=== PATIENT | male | born 1930 | race Caucasian/White ===

== ENCOUNTER 2017-08-07 19:36 | Emergency (ER) | payer MEDICARE ==
[2017-08-07] MEDS ORDERED: Alum Hydrox/Mag Hydrox/Simeth 15 ML, Lidocaine 2% 15 ML PO ONE ×2 (20:01)
--- NOTE | 2017-08-07 20:37 | EDM.PDOC ---
ED HPI GENERAL MEDICAL PROBLEM - General Chief Complaint: ENT Problem Stated Complaint: SOMETHING STUCK IN THROAT Time Seen by Provider: 08/07/17 19:45 Source of Information: Reports: Patient, Family History Limitations: Reports: No Limitations - History of Present Illness INITIAL COMMENTS - FREE TEXT/NARRATIVE: 86-year-old male with a feeling of a foreign body in his upper throat. It started this morning after he took his medications and then was eating a hotdog that was uncooked. Since that time he has a sensation of odynophagia in the upper throat but no obstruction. No shortness of breath or cough. Onset: Sudden (Started around 10 AM this morning) Severity: Mild Worsens with: Reports: Other (Worsens with swallowing or coughing) Throat Pain Score (Numeric/FACES): 5 - Related Data Allergies Allergy/AdvReac Type Severity Reaction Status Date / Time atorvastatin calcium Allergy Rash Verified 08/07/17 20:02 [From Lipitor] Penicillins Allergy Hives Verified 08/07/17 20:02 Home Meds: Home Meds Aspirin 81 mg PO DAILY 06/03/13 [History] Finasteride 5 mg PO DAILY 06/03/13 [History] Metoprolol Tartrate 50 tab PO BID 06/03/13 [History] Ocuvite 1 tab PO DAILY 06/03/13 [History] Furosemide [Lasix] 40 mg PO DAILY 08/07/17 [History] Tamsulosin HCl 1 tab PO DAILY 08/07/17 [History] Past Medical History HEENT History: Reports: Impaired Vision, Otitis Media, Other (See Below) Other HEENT History: Excessive cerumen Cardiovascular History: Reports: Hypertension Respiratory History: Reports: None Gastrointestinal History: Reports: Other (See Below) Other Gastrointestinal History: Bladder stones Genitourinary History: Reports: Urinary Incontinence, Other (See Below) Other Genitourinary History: Kidney problems Musculoskeletal History: Reports: Fracture Other Musculoskeletal History: fractured rib secondary to fall Neurological History: Reports: CVA Psychiatric History: Reports: None Endocrine/Metabolic History: Reports: None Hematologic History: Reports: None Immunologic History: Reports: None Oncologic (Cancer) History: Reports: None Dermatologic History: Reports: None - Infectious Disease History Infectious Disease History: Reports: Chicken Pox, Measles, Mumps - Past Surgical History Head Surgeries/Procedures: Reports: None GI Surgical History: Reports: Other (See Below) Other GI Surgeries/Procedures: surgery to remove bladder stones Social & Family History - Tobacco Use Smoking Status *Q: Never Smoker Second Hand Smoke Exposure: No - Caffeine Use Caffeine Use: Reports: Coffee - Alcohol Use Days Per Week of Alcohol Use: 7 Number of Drinks Per Day: 3 Total Drinks Per Week: 21 Date of Last Drink: 08/07/17 Time of Last Drink: 18:00 - Recreational Drug Use Recreational Drug Use: No ED ROS ENT - Review of Systems Review Of Systems: See Below Constitutional: Denies: Fever Respiratory: Denies: Shortness of Breath, Cough Cardiovascular: Denies: Chest Pain GI/Abdominal: Denies: Abdominal Pain, Nausea, Vomiting Neurological: Denies: Headache ED EXAM, ENT - Physical Exam Exam: See Below Exam Limited By: No Limitations General Appearance: Alert, No Apparent Distress Mouth/Throat: Normal Inspection, Other (Tonsils are absent, no mucosal swelling or foreign body in the oropharynx) Respiratory/Chest: No Respiratory Distress, Lungs Clear Cardiovascular: Regular Rate, Rhythm GI/Abdominal: Soft, Non-Tender Neurological: Alert, Oriented Skin: Warm, Dry Course - Vital Signs Last Recorded V/S: Last Vital Signs Temp 96.3 F 08/07/17 20:12 Pulse 56 L 08/07/17 20:12 Resp 16 08/07/17 20:12 BP 163/74 H 08/07/17 20:12 Pulse Ox 95 08/07/17 20:12 - Orders/Labs/Meds Meds: Medications Discontinued Medications Generic Name Dose Route Start Last Admin Trade Name Freq PRN Reason Stop Dose Admin Al Hydroxide/Mg Hydroxide 15 0 ml 08/07/17 20:01 08/07/17 20:16 ml/ Lidocaine HCl 15 ml PO 08/07/17 20:02 30 ml ONETIME ONE Administration - Re-Assessments/Exams Free Text/Narrative Re-Assessment/Exam: 08/07/17 20:35 Patient was given a GI cocktail and it did relieve his symptoms partially. He took the cocktail without any difficulty and can drink water. He likely has an abrasion or irritation of the upper esophagus without foreign body and it should resolve over the next day or two. He is comfortable with no further evaluation at this time. Departure - Departure Time of Disposition: 20:56 Disposition: Home, Self-Care 01 Condition: Good Clinical Impression: Odynophagia - Discharge Information Instructions: Swallowed Foreign Body, Adult, [id number] Referrals: David Erickson MD [Primary Care Provider] - Forms: ED Department Discharge Care Plan Goals: Continue with current diet and activity, and recheck in 48-72 hours if not significant improvement. Return sooner at any time if worsening such as inability to swallow.
== END 2017-08-07 20:56 | disposition home or self-care (01) ==
LOC: JP.ED 19:36
DX: R13.10 Dysphagia, unspecified (principal); I10 Essential (primary) hypertension; Z88.8 Allergy status to other drugs, medicaments and biological substances; Z88.0 Allergy status to penicillin; Z79.899 Other long term (current) drug therapy; Z79.82 Long term (current) use of aspirin
CPT/HCPCS: 99283; A9270

== ENCOUNTER 2018-09-24 13:19 | Emergency (ER) | payer MEDICARE ==
--- NOTE | 2018-09-24 14:25 | EDM.PDOC ---
ED HPI GENERAL MEDICAL PROBLEM - General Chief Complaint: Lower Extremity Injury/Pain Stated Complaint: MED VIA [facility] Time Seen by Provider: 09/24/18 14:00 Source of Information: Reports: Patient, EMS, Family History Limitations: Reports: No Limitations - History of Present Illness INITIAL COMMENTS - FREE TEXT/NARRATIVE: 88-year-old male with chronic lower extremity pain especially on the left, this morning it was so bad it was limiting his ability to ambulate and radiating around to his lower back. He's also had some increased swelling of his lower extremities. He did stop his Lasix because of the persistent incontinence. Onset: Gradual Duration: Chronic Location: Reports: Lower Extremity, Left, Lower Extremity, Right Worsens with: Reports: Other (Ambulation), Movement Associated Symptoms: Reports: Weakness. Denies: Confusion, Chest Pain, Cough, Nausea/Vomiting Left Leg Pain Score (Numeric/FACES): 5 - Related Data Allergies Allergy/AdvReac Type Severity Reaction Status Date / Time atorvastatin calcium Allergy Rash Verified 09/24/18 13:37 [From Lipitor] Penicillins Allergy Hives Verified 09/24/18 13:37 Home Meds: Home Meds Aspirin 81 mg PO DAILY 06/03/13 [History] Finasteride 5 mg PO DAILY 06/03/13 [History] Metoprolol Tartrate 50 tab PO BID 06/03/13 [History] Ocuvite 1 tab PO DAILY 06/03/13 [History] Naproxen Sodium [Aleve] 220 mg PO BID PRN 09/24/18 [History] Past Medical History HEENT History: Reports: Impaired Vision, Otitis Media, Other (See Below) Other HEENT History: Excessive cerumen Cardiovascular History: Reports: Hypertension Respiratory History: Reports: None Gastrointestinal History: Reports: Other (See Below) Other Gastrointestinal History: Bladder stones Genitourinary History: Reports: Renal Disease, Urinary Incontinence, Other (See Below) Other Genitourinary History: Kidney problems Musculoskeletal History: Reports: Fracture, Other (See Below) Other Musculoskeletal History: fractured rib secondary to fall Chronic l hip and leg pain Neurological History: Reports: CVA Psychiatric History: Reports: None Endocrine/Metabolic History: Reports: None Hematologic History: Reports: None Immunologic History: Reports: None Oncologic (Cancer) History: Reports: None Dermatologic History: Reports: None - Infectious Disease History Infectious Disease History: Reports: Chicken Pox - Past Surgical History Head Surgeries/Procedures: Reports: None GI Surgical History: Reports: Other (See Below) Other GI Surgeries/Procedures: surgery to remove bladder stones Social & Family History - Tobacco Use Smoking Status *Q: Never Smoker Second Hand Smoke Exposure: No - Caffeine Use Caffeine Use: Reports: None - Alcohol Use Days Per Week of Alcohol Use: 7 Number of Drinks Per Day: 3 Total Drinks Per Week: 21 - Recreational Drug Use Recreational Drug Use: No Review of Systems - Review of Systems Review Of Systems: See Below Constitutional: Denies: Fever Respiratory: Denies: Shortness of Breath, Cough Cardiovascular: Denies: Chest Pain Musculoskeletal: Reports: Back Pain, Leg Pain Skin: Denies: Bruising Neurological: Denies: Paresthesia ED EXAM, GENERAL - Physical Exam Exam: See Below Exam Limited By: No Limitations General Appearance: Alert, No Apparent Distress Head: Atraumatic Respiratory/Chest: No Respiratory Distress Back Exam: Paraspinal Tenderness (Patient has some paraspinal tenderness over the lower left spine into the buttock) Extremities: Pedal Edema (1+ pedal edema in the left leg, trace in the right. Palpation tenderness is positive around the greater trochanteric area of the left hip.) Neurological: Alert, Oriented Psychiatric: Flat Affect Skin Exam: Warm, Dry Course - Vital Signs Last Recorded V/S: Last Vital Signs Temp 95.9 F 09/24/18 13:34 Pulse 66 09/24/18 13:34 Resp 16 09/24/18 13:34 BP 201/69 H 09/24/18 13:34 Pulse Ox 96 09/24/18 13:34 - Orders/Labs/Meds Labs: Laboratory Tests 09/24/18 09/24/18 Range/Units 14:30 14:30 WBC 7.7 (4.5-11.0) K/uL RBC 3.46 L (4.30-5.90) M/uL Hgb 11.8 L (12.0-15.0) g/dL Hct 36.2 L (40.0-54.0) % MCV 105 H (80-98) fL MCH 34 H (27-31) pg MCHC 33 (32-36) % Plt Count 165 (150-400) K/uL Neut % (Auto) 75 H (36-66) % Lymph % (Auto) 12 L (24-44) % Ward % (Auto) 8 H (2-6) % Eos % (Auto) 5 H (2-4) % Baso % (Auto) 0 (0-1) % Sodium 144 (140-148) mmol/L Potassium 4.0 (3.6-5.2) mmol/L Chloride 106 (100-108) mmol/L Carbon Dioxide 29 (21-32) mmol/L Anion Gap 8.7 (5.0-14.0) mmol/L BUN 27 H (7-18) mg/dL Creatinine 1.3 (0.8-1.3) mg/dL Est Cr Clr Drug Dosing 33.51 mL/min Estimated GFR (MDRD) 52 L (>60) Glucose 104 (74-106) mg/dL Calcium 8.5 (8.5-10.1) mg/dL Meds: Medications Discontinued Medications Generic Name Dose Route Start Last Admin Trade Name Freq PRN Reason Stop Dose Admin Bupivacaine HCl 10 ml 09/24/18 14:30 09/24/18 14:27 Sensorcaine-Mpf 0.5% INJECT 09/24/18 14:31 10 ml ONETIME ONE Administration Triamcinolone Acetonide 40 mg 09/24/18 14:30 09/24/18 14:27 Kenalog-40 INJECT 09/24/18 14:31 40 mg ONETIME ONE Administration - Re-Assessments/Exams Free Text/Narrative Re-Assessment/Exam: 09/24/18 14:53 CBC and BMP were obtained to assess the patient's chronic renal insufficiency, 40 mg of Kenalog along with 10 mL of 0.5% Marcaine was infiltrated into the left greater trochanteric area under sterile conditions. An ultrasound of the left leg was obtained to rule out a DVT which was a primary concern of the family. 09/24/18 16:07 Ultrasound of the leg was negative for DVT. 09/24/18 16:08 GFR 57 and creatinine 1.3, electrolytes reassuring. Patient still had significant hip pain after the greater trochanteric injection so a 1 view pelvis x-ray was obtained. 09/24/18 17:19 Pelvis x-ray showed mild to moderate arthritis but no significant inflammatory issues or acute findings. Patient wanted to go home, he got up and ambulated with assistance so will be allowed to go home. Continue his regular medications and return if worsening. Departure - Departure Time of Disposition: 17:59 Disposition: Home, Self-Care 01 Clinical Impression: Greater trochanteric bursitis of left hip, Left sided sciatica - Discharge Information Instructions: Trochanteric Bursitis Referrals: PCP,None [Primary Care Provider] - Forms: ED Department Discharge Care Plan Goals: Continue your current medications, increase activity as tolerated and return anytime if worsening or concerns.
[2018-09-24] MEDS ORDERED: Triamcinolone Acetonide 40 MG/ML 1 ML MDV INJECT ONE (14:30)
[2018-09-24] MEDS ORDERED: Bupivacaine 0.5% 10 ML SDV INJECT ONE (14:30)
--- NOTE | 2018-09-24 16:45 | CRLUS ---
INDICATION: Left leg pain and swelling TECHNIQUE: Ultrasound venous duplex lower left extremity. Compression venous exam was performed using george-scale, color Doppler, and spectral Doppler analysis. COMPARISON: None FINDINGS: Sonographic imaging demonstrates the left common femoral, deep femoral, superficial femoral, popliteal, posterior tibial, peroneal, and greater saphenous veins to be fully compressible with normal color Doppler blood flow. IMPRESSION: Normal left lower extremity venous ultrasound, no sign of deep venous thrombosis. Dictated by Shi Beaver MD @ Sep 24 2018 4:42PM Signed by Dr. Shi Beaver @ Sep 24 2018 4:43PM
--- NOTE | 2018-09-24 17:32 | CRLCR ---
Indication: Back and hip pain Technique: Frontal view pelvis Comparison: None Findings: Bones: Alignment is normal. No fractures or bone lesions. Joint spaces: Mild to moderate degenerative changes in both hip joints. Soft tissues: There are vascular calcifications. Impression: No acute abnormality. Wper-ej-xadyoxoc degenerative changes in both hip joints. Dictated by Shi Beaver MD @ Sep 24 2018 5:29PM Signed by Dr. Shi Beaver @ Sep 24 2018 5:30PM
== END 2018-09-24 17:59 | disposition home or self-care (01) ==
LOC: JP.ED 13:19
DX: M70.62 Trochanteric bursitis, left hip (principal); M54.32 Sciatica, left side; I10 Essential (primary) hypertension; Z88.0 Allergy status to penicillin; Z88.8 Allergy status to other drugs, medicaments and biological substances; Z79.82 Long term (current) use of aspirin; Z79.899 Other long term (current) drug therapy; Z86.73 Personal history of transient ischemic attack (TIA), and cerebral infarction without residual deficits
CPT/HCPCS: 20610; 36415; 72170; 80048; 85025; 93971; 99285; J3301; J3490; 99283

== ENCOUNTER 2018-12-23 18:56 | Observation (INO) | payer MEDICARE ==
--- NOTE | 2018-12-23 20:52 | PCM.HP.2 ---
H&P History of Present Illness - General Date of Service: 12/23/18 Admit Problem/Dx: Admission Diagnosis/Problem Admission Diagnosis/Problem DVT, Deep venous thrombosis of lower extremity Source of Information: Patient, Provider, RN History Limitations: Reports: Altered Mental Status - History of Present Illness Initial Comments - Free Text/Narative: chief complaint: DVT left lower leg This is a 88 year old male presents to [address] [place] [address] for direct admission for treatment of DVT, his Daughter is with him. Left lower leg pain Report given by Dr. Short; came to clinic for left lower leg pain and worsen cellulitis of lower legs for the past 3 day. Work up included a D-dimer elevation, decreased kidney function. Doppler studies which shows a DVT. Cellulitis His legs were cleaned, wound dressing applied. He has an appointment in [facility]ound Clinic tomorrow. He was given Lasix 20 mg po, order for Septra - but not given. Due Mr. Churchill living alone and frail condition, advise Observation Admit for management of DVT and Cellulitis. Onset of Symptoms: Reports: Today (painful lower left leg), Gradual (reports has been struggling with lower leg edema for two years. ) Duration of Symptoms: Reports: Day(s): Location: Reports: Lower Extremity, Left, Lower Extremity, Right Quality: Reports: Ache, Burning (pruritic burning pain to lower legs, scratches legs til bleed, then has an infection) Severity: Moderate Improves with: Reports: None Worsens with: Reports: Movement (increased pain with ambulating.) Context: Reports: Other (left lower leg with proximal DVT) Associated Symptoms: Reports: Confusion (slow to respond to question not sure if its a hearing issue.), Headaches, Other (worse lower leg pain) - Related Data Allergies/Adverse Reactions: Allergies Allergy/AdvReac Type Severity Reaction Status Date / Time atorvastatin calcium Allergy Rash Verified 09/24/18 13:37 [From Lipitor] Penicillins Allergy Hives Verified 09/24/18 13:37 Home Medications: Home Meds Aspirin 81 mg PO DAILY 06/03/13 [History] Finasteride 5 mg PO DAILY 06/03/13 [History] Metoprolol Tartrate 25 tab PO BID 06/03/13 [History] Carbidopa/Levodopa [Sinemet 25-100 mg Tablet] 1 tab PO DAILY 12/23/18 [History] Furosemide [Lasix] 20 mg PO DAILY 12/23/18 [History] Naphazoline HCl/Pheniramine [Visine-A Eye Allergy Drops] 2 drop OP BID PRN 12/23 [History] Triamcinolone Acetonide [Kenalog 0.1% Crm] 1 applic BID PRN 12/23/18 [History] amLODIPine [Norvasc] 5 mg PO DAILY 12/23/18 [History] Past Medical History HEENT History: Reports: Hard of Hearing, Impaired Vision, Otitis Media, Other ( See Below) Other HEENT History: Excessive cerumen Cardiovascular History: Reports: Hypertension Respiratory History: Reports: None Gastrointestinal History: Reports: Other (See Below) Other Gastrointestinal History: Bladder stones Genitourinary History: Reports: Renal Disease, Urinary Incontinence, Other (See Below) Other Genitourinary History: Kidney problems Musculoskeletal History: Reports: Fracture, Other (See Below) Other Musculoskeletal History: fractured rib secondary to fall Chronic l hip and leg pain Neurological History: Reports: CVA Psychiatric History: Reports: None Endocrine/Metabolic History: Reports: None Hematologic History: Reports: None Immunologic History: Reports: None Oncologic (Cancer) History: Reports: None Dermatologic History: Reports: Other (See Below) Other Dermatologic History: dry skin - Infectious Disease History Infectious Disease History: Reports: Chicken Pox, Hepatitis A, Other (See Below) Other Infectious Disease History: "infectious hepatitis" - Past Surgical History Head Surgeries/Procedures: Reports: None HEENT Surgical History: Reports: Cataract Surgery, Detached Retina Cardiovascular Surgical History: Reports: None GI Surgical History: Reports: Other (See Below) Other GI Surgeries/Procedures: surgery to remove bladder stones Other Male Surgeries/Procedures: partial prostatectomy? per daughter Musculoskeletal Surgical History: Reports: None Social & Family History - Family History Endocrine/Metabolic: Reports: Diabetes, type II, Other (See Below) Other Endocrine/Metabolic Family History: parathyroidism Hematologic: Reports: Anemia Other Hematologic Family History: mother - Tobacco Use Smoking Status *Q: Former Smoker Years of Tobacco use: 25 Used Tobacco, but Quit: Yes Month/Year Tobacco Last Used: 2000 Second Hand Smoke Exposure: No - Caffeine Use Caffeine Use: Reports: None - Alcohol Use Days Per Week of Alcohol Use: 7 Number of Drinks Per Day: 1 Total Drinks Per Week: 7 Date of Last Drink: 12/22/18 - Recreational Drug Use Recreational Drug Use: No H&P Review of Systems - Review of Systems: Review Of Systems: See Below General: Reports: Other (bilateral lower legs with pain and edema. new diagnosis of DVT ) HEENT: Reports: Glasses, Other (teeth present) Pulmonary: Reports: No Symptoms Cardiovascular: Reports: No Symptoms Gastrointestinal: Reports: No Symptoms Genitourinary: Reports: No Symptoms Musculoskeletal: Reports: Other (bilateral lower leg pain) Skin: Reports: Other (lower legs are wrapped in dressing and adam wrap from knees to toes) Psychiatric: Reports: Confusion (mild confusion.) Neurological: Reports: Headache, Difficulty Walking (due to worsen lower leg edema and DVT) Hematologic/Lymphatic: Reports: No Symptoms Immunologic: Reports: No Symptoms Exam - Exam Exam: See Below - Vital Signs Vital Signs: Last Vital Signs Temp 35.8 C 12/23/18 19:20 Pulse 78 12/23/18 19:20 Resp 16 12/23/18 19:20 BP 161/61 H 12/23/18 19:20 Pulse Ox 95 12/23/18 19:20 Weight: 79.832 kg - Exam Quality Assessment: Other (DVT treatment) General: Alert, Cooperative HEENT: PERRLA, Conjunctiva Clear, Hearing Intact, Mucosa Moist & [place], Glasses Neck: Supple, Trachea Midline Lungs: Clear to Auscultation, Normal Respiratory Effort Cardiovascular: Irregular Rhythm GI/Abdominal Exam: Normal Bowel Sounds, Soft, Non-Tender, No Distention (Male) Exam: Normal Inspection Rectal (Males) Exam: Deferred Back Exam: Normal Inspection, Full Range of Motion, Other (back exam - no bruising or injury is seen. ) Extremities: Pedal Edema (2 pitting edema of legs. thigh. toes with edema. bilateral lower legs are wrapped.), Limited Range of Motion (due to pain and edema) Peripheral Pulses: 2+: Radial (L), Radial (R) Skin: Warm, Dry, Other (lower legs wrap; ) Neurological: Reflexes Unequal (hx of CVA with left sided weakness. ) Neuro Extensive - Mental Status: Alert (cooperative, slow to answer question. but does give appropriate responses), Normal Mood/Affect Neuro Extensive - Motor, Sensory, Reflexes: Motor/Sensory Deficits (pre- exisiting from previous CVA left sided weakness) Psychiatric: Alert, Normal Affect, Normal Mood, Other (reports his 2 years ago, really missing her. They were in [place] [address], 68 years til 2017 when she of lengthy illness.) - Problem List (1) Deep vein thrombosis (DVT) of left lower extremity SNOMED Code(s): 266201538 ICD Code: I82.402 - ACUTE EMBOLISM AND THOMBOS UNSP DEEP VEINS OF L LOW EXTREM Status: Acute Priority: High Current Visit: Yes Qualifiers: Affected thrombotic vein of extremity: unspecified vein of extremity Chronicity: acute Qualified Code(s): I82.402 - Acute embolism and thrombosis of unspecified deep veins of left lower extremity (2) History of stroke SNOMED Code(s): 194944978 ICD Code: Z86.73 - PRSNL HX OF TIA (TIA), AND CEREB INFRC W/O RESID DEFICITS Status: Acute Priority: High Current Visit: Yes (3) Coronary artery disease SNOMED Code(s): 02844619 ICD Code: I25.10 - ATHSCL HEART DISEASE OF [place] CORONARY ARTERY W/O ANG PCTRS Status: Acute Priority: High Current Visit: Yes Problem List Initiated/Reviewed/Updated: Yes Orders Last 24hrs: Active Orders 24 hr Category Date Time Status Patient Status Manage Transfer [TRANSFER] Routine ADT 12/23/18 20:33 Ordered Resuscitation Status Routine Resus Stat 12/23/18 20:35 Ordered Assessment/Plan Comment:: ASSESSMENT AND PLAN - chief complaint: DVT left lower leg This is a 88 year old male presents to [address] [place] [address] for direct admission for treatment of DVT, his Daughter is with him. Left lower leg pain Report given by Dr. Short; came to clinic for left lower leg pain and worsen cellulitis of lower legs for the past 3 day. Work up included a D-dimer elevation, decreased kidney function. Doppler studies which shows a DVT. Cellulitis His legs were cleaned, wound dressing applied. He has an appointment in Wound Clinic tomorrow. He was given Lasix 20 mg po, order for Septra - but not given. Due Mr. Churchill living alone and frail condition, [facility]Nursing and Housekeeping services. advise Observation Admit for management of DVT and Cellulitis. DVT of the left lower leg -Lovenox 80mg subcut bid, start tonight -Coumadin 5 mg po, start tonight -INR-PT in am Lower leg cellulitis -daily dressing changes -Keflex 500mg every 8 hours -am labs CBC, CMP CAD -continue home medication Maintenance issues - - DVT prophylaxis - enoxaparin - GI prophylaxis - not indicated - Nutrition - diabetic diet - Elena catheter - not indicated -consult to Spiritual Care CODE STATUS - DNR/DNI Admission justification - patient will be referred to observation for expedited workup and wound care consultation Disposition - I would anticipate discharge home after the hospital stay Primary care physician - Dr. Erickson, [facility] Win Aguilar M.D. - Mortality Measure Prognosis:: Good
[2018-12-23] MEDS ORDERED: Acetaminophen 325 MG Tab PO PRN (21:07)
[2018-12-23] MEDS ORDERED: Docusate Sodium 100 MG Cap PO PRN (21:07)
[2018-12-23] MEDS ORDERED: Bisacodyl 5 MG Tab PO PRN (21:07)
[2018-12-23] MEDS: Metoprolol Tartrate 25 MG Tab PO SCH (22:23)
[2018-12-23] MEDS: Enoxaparin 80 MG/0.8 ML Syringe SUBCUT SCH (22:54)
[2018-12-23] MEDS: Cephalexin 250 MG Cap PO SCH (22:54)
[2018-12-24] MEDS: Cephalexin 250 MG Cap PO SCH ×2 (06:37→21:17)
[2018-12-24] MEDS ORDERED: Finasteride 5 MG Tab PO SCH (09:00)
[2018-12-24] MEDS ORDERED: amLODIPine 5 MG Tab PO SCH (09:00)
[2018-12-24] MEDS ORDERED: Aspirin 81 MG Tab.EC PO SCH (09:00)
[2018-12-24] MEDS ORDERED: Carbidopa/Levodopa 25-100 MG Tab PO SCH (09:00)
[2018-12-24] MEDS: Enoxaparin 80 MG/0.8 ML Syringe SUBCUT SCH ×2 (09:59→21:17)
--- NOTE | 2018-12-24 10:27 | PCM.PN ---
- General Info Date of Service: 12/24/18 Subjective Update: No acute events overnight following admission. Patient reports mild pain in the left leg. Swelling is minimal and stable. No complaints of shortness of breath. No fevers. We did check with his insurance company to see if they would cover Eliquis but unfortunately would not be covered. Functional Status: Reports: Pain Controlled, Tolerating Diet, Ambulating - Review of Systems General: Reports: Weakness Musculoskeletal: Reports: Leg Pain - Patient Data Vitals - Most Recent: Last Vital Signs Temp 36.4 C 12/24/18 08:08 Pulse 70 12/24/18 08:08 Resp 16 12/24/18 08:08 BP 155/60 H 12/24/18 08:08 Pulse Ox 95 12/24/18 08:08 Weight - Most Recent: 79.832 kg I&O - Last 24 Hours: Intake & Output 12/23/18 12/24/18 12/24/18 22:59 06:59 14:59 Intake Total 100 Output Total 360 200 100 Balance -360 -200 0 Lab Results Last 24 Hours: Laboratory Results - last 24 hr 12/24/18 12/24/18 12/24/18 Range/Units 04:24 04:24 04:24 WBC 7.2 (4.5-11.0) K/uL RBC 3.27 L (4.30-5.90) M/uL Hgb 11.3 L (12.0-15.0) g/dL Hct 34.4 L (40.0-54.0) % MCV 105 H (80-98) fL MCH 35 H (27-31) pg MCHC 33 (32-36) % Plt Count 188 (150-400) K/uL Neut % (Auto) 56 (36-66) % Lymph % (Auto) 24 (24-44) % [place] % (Auto) 12 H (2-6) % Eos % (Auto) 8 H (2-4) % Baso % (Auto) 0 (0-1) % PT 11.0 (9.5-12.0) sec INR 1.02 (0.80-1.20) Sodium 140 (140-148) mmol/L Potassium 3.6 (3.6-5.2) mmol/L Chloride 105 (100-108) mmol/L Carbon Dioxide 27 (21-32) mmol/L Anion Gap 8.4 (5.0-14.0) mmol/L BUN 15 (7-18) mg/dL Creatinine 1.2 (0.8-1.3) mg/dL Est Cr Clr Drug Dosing 39.02 mL/min Estimated GFR (MDRD) 57 L (>60) Glucose 89 (74-106) mg/dL Calcium 8.4 L (8.5-10.1) mg/dL Total Bilirubin 1.6 H (0.2-1.0) mg/dL AST 15 (15-37) U/L ALT 11 L (12-78) U/L Alkaline Phosphatase 78 (46-116) U/L Total Protein 6.3 L (6.4-8.2) g/dL Albumin 3.0 L (3.4-5.0) g/dL Globulin 3.3 (2.3-3.5) g/dL Albumin/Globulin Ratio 0.9 L (1.2-2.2) Med Orders - Current: Current Medications Acetaminophen (Tylenol) 650 mg PO Q4H PRN PRN Reason: Pain (Mild 1-3)/fever Last Admin: 12/23/18 21:38 Dose: 325 mg Amlodipine Besylate (Norvasc) 5 mg PO DAILY [facility] Aspirin (Halfprin) 81 mg PO DAILY [facility] Bisacodyl (Dulcolax) 5 mg PO DAILY PRN PRN Reason: Constipation Carbidopa/Levodopa (Sinemet 25-100 Mg) 1 tab PO DAILY [facility] Cephalexin (Keflex) 500 mg PO Q8H [facility] Last Admin: 12/24/18 06:37 Dose: 500 mg Docusate Sodium (Colace) 100 mg PO BID PRN PRN Reason: Constipation Enoxaparin Sodium (Lovenox) 80 mg SUBCUT Q12H [facility] Last Admin: 12/24/18 09:59 Dose: 80 mg Finasteride (Proscar) 5 mg PO DAILY [facility] Furosemide (Lasix) 20 mg PO DAILY [facility] Metoprolol Tartrate (Lopressor) 25 mg PO BID [facility] Last Admin: 12/23/18 22:23 Dose: Not Given Non-Formulary Medication (Naphazoline Hcl/Pheniramine [Visine-A Eye Allergy Drops]) 2 drop OP BID PRN PRN Reason: itchy eyes Warfarin Sodium (Coumadin) 5 mg PO DAILY@1300 [facility] - Exam Quality Assessment: No: Supplemental Oxygen General: Alert, Oriented, Cooperative, No Acute Distress Lungs: Normal Respiratory Effort GI/Abdominal Exam: Soft, No Distention Extremities: Pedal Edema, Other (both lower legs wrapped from foot to the knee ) Skin: Warm, Dry Psy/Mental Status: Alert, Normal Affect - Problem List Review Problem List Initiated/Reviewed/Updated: Yes - My Orders Last 24 Hours: My Active Orders 12/24/18 10:25 Discontinue Telemetry Monitoring [Cardiac Monitoring Discontinue] [RC] Click to Edit Potassium Chloride [Klor-Con M20] 40 meq PO ONETIME ONE 12/24/18 11:00 Influenza Vaccine Charge [RC] ONETIME 12/24/18 21:00 cephALEXin [Keflex] 500 mg PO BID 12/25/18 05:00 BASIC METABOLIC PANEL,BMP [CHEM] Timed INR,PT,PROTHROMBIN TIME [COAG] Timed - Plan Plan:: ASSESSMENT AND PLAN - Acute proximal DVT of the left leg - likely provoked by sedentary lifestyle. DOAC not covered by insurance. Having some pain but in general getting around okay. -Enoxaparin 80mg subcut bid until INR therapeutic -Coumadin 7.5 mg po, start today -INR-PT in am Cellulitis of bilateral lower extremities, suspected - His legs were cleaned, wound dressing applied. He was supposed to see the wound clinic as an outpatient. -Empiric anabiotic coverage with cephalexin -Consult Dr. Em for wound care recommendations CAD - stable and asymptomatic -continue home medication Maintenance issues - - DVT prophylaxis - enoxaparin - GI prophylaxis - not indicated - Nutrition - diabetic diet Admission justification - patient will be referred to observation for expedited workup and wound care consultation Disposition - I would anticipate discharge home after the hospital stay Primary care physician - Dr. Erickson, [facility] Win Aguilar M.D.
[2018-12-24] MEDS ORDERED: Potassium Chloride 20 MEQ Tab.ER PO ONE (11:00)
[2018-12-24] MEDS: amLODIPine 5 MG Tab**POM PO SCH (12:39)
[2018-12-24] MEDS: METOPROLOL TARTRATE 25 MG PO SCH ×2 (12:40→21:19)
[2018-12-24] MEDS: FUROSEMIDE 20 MG PO SCH (12:41)
[2018-12-24] MEDS: LEVODOPA PO SCH (12:43)
[2018-12-24] MEDS: Aspirin 81 MG Tab.EC**POM PO SCH (12:43)
[2018-12-24] MEDS: CARBIDOPA PO SCH (12:43)
[2018-12-24] MEDS: Warfarin 2.5 MG Tab PO SCH (12:48)
[2018-12-24] MEDS ORDERED: Warfarin 5 MG Tab PO SCH (13:00)
[2018-12-24] MEDS: Finasteride 5 MG Tab**POM PO SCH (13:38)
[2018-12-24] MEDS: Metoprolol Tartrate 25 MG Tab PO SCH (13:40)
[2018-12-25] MEDS ORDERED: Ketotifen 0.025% Ophth Soln 5 ML Bottle EYEBOTH PRN (09:00)
[2018-12-25] MEDS: Aspirin 81 MG Tab.EC**POM PO SCH (09:14)
[2018-12-25] MEDS: Cephalexin 250 MG Cap PO SCH (09:15)
[2018-12-25] MEDS: FUROSEMIDE 20 MG PO SCH (09:15)
[2018-12-25] MEDS: METOPROLOL TARTRATE 25 MG PO SCH (09:17)
[2018-12-25] MEDS: amLODIPine 5 MG Tab**POM PO SCH (09:19)
[2018-12-25] MEDS: Finasteride 5 MG Tab**POM PO SCH (09:20)
[2018-12-25] MEDS: LEVODOPA PO SCH (09:21)
[2018-12-25] MEDS: CARBIDOPA PO SCH (09:21)
[2018-12-25] MEDS ORDERED: Enoxaparin 120 MG/0.8 ML Syringe SUBCUT SCH (10:00)
--- NOTE | 2018-12-25 10:50 | PCM.DCSUM1 ---
Discharge Summary - Hospital Course Brief History: 88-year-old male with history of venous insufficiency and coronary artery disease who presented with left lower extremity swelling as well as concern for ulcerations on both of his lower extremities. He was admitted for management of acute left DVT. Diagnosis: Stroke: No - Discharge Data Discharge Date: 12/25/18 Discharge Disposition: Home, W Home Health Agency 06 Condition: Good - Referral to Home Health Date of Face to Face Encounter: 12/25/18 Reason for Homebound Status: acute on chronic weakness, DVT, lower ext wounds Primary Care Physician: David Erickson MD Skilled Need: Nursing and PT - Discharge Diagnosis/Problem(s) (1) Deep vein thrombosis (DVT) of left lower extremity SNOMED Code(s): 969906857 ICD Code: I82.402 - ACUTE EMBOLISM AND THOMBOS UNSP DEEP VEINS OF L LOW EXTREM Status: Acute Priority: High Current Visit: Yes Qualifiers: Affected thrombotic vein of extremity: unspecified lower extremity proximal vein Chronicity: acute Qualified Code(s): I82.4Y2 - Acute embolism and thrombosis of unspecified deep veins of left proximal lower extremity (2) Stasis dermatitis of 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 SNOMED Code(s): 252969115233754 ICD Code: I87.332 - CHRONIC VENOUS HTN W ULCER AND INFLAMMATION OF L LOW EXTREM; L97.929 - NON-PRS CHRONIC ULC UNSP PRT OF L LOW LEG W UNSP SEVERITY Status: Acute Current Visit: Yes (3) CKD (chronic kidney disease), stage III SNOMED Code(s): 922421427 ICD Code: N18.3 - CHRONIC KIDNEY DISEASE, STAGE 3 (MODERATE) Status: Chronic Current Visit: Yes - Patient Summary/Data Consults: Consultations 12/23/18 21:07 Consult to Spiritual Care [CONS] Routine 12/24/18 10:28 Consult to Physician [CONS] Routine Consulting Provider: Forrest Em Call Completed to Consulting Physician: Yes Reason for Consult: bilateral lower ext ulcerations, needs wound care Person Notified: RW Date Notified: 12/24/18 Hospital Course: Marito presented initially to the clinic with left lower extremity swelling as well as concerns about both of his lower extremities and progressive ulcerations. Workup in the walk-in clinic revealed elevated d-dimer which prompted an ultrasound of the leg which did show a fairly extensive DVT. Also noted were bilateral lower extremity ulcerations and venous insufficiency. He was sent to the hospital for direct admission and management of the DVT as well as wound care consultation. He was started on enoxaparin to manage the DVT and then warfarin was initiated the next day. Left leg swelling has improved after just a couple of days but has not resolved. He still has significant swelling of the left leg from the mid wang distally. He was seen by Dr. Em for wound care consultation. Mepilex dressing was applied to the left lower extremity. Superficial wound care dressings were applied to the other extremity. He has tolerated the anticoagulation well. He feels comfortable going home but was interested in home care to help ease the transition home. We have elected to utilize warfarin for his long-term anticoagulation because of cost issues with the DOAC's. He will be on enoxaparin to bridge until his INR is therapeutic. Home care will be providing the subcutaneous injections and teaching his daughter to help with these. He will be referred to the Coumadin clinic. He will be following up with Dr. Em in the wound care clinic. - Patient Instructions Diet: Low Sodium Activity: As Tolerated Showering/Bathing: May Shower, No Tub Bathing/Swimming Notify Provider of: Fever, Increased Pain, Drainage Other/Special Instructions: 1. Take warfarin 5 mg daily after lunch until you have your follow-up with the Coumadin clinic. This medication will help to slowly dissolve the blood clot in your left leg. You will need regular monitoring to ensure that the level remains therapeutic. You will need to have your INR level checked on December 28. 2. Take enoxaparin 120 mg subcutaneously daily in the morning until your INR is therapeutic. Home health care services will help to monitor your levels and let you know when you can stop using the subcutaneous injection. 3. Take cephalexin (Keflex) 500 mg twice daily for 13 more doses. This antibiotic will help heal the cellulitis/ skin infection of your lower legs. 4. I have placed a referral to home health care. They will provide nursing and PT services to help ease your transition home. 5. Follow up with Dr Em in one week for wound care follow up - Discharge Plan *PRESCRIPTION DRUG MONITORING PROGRAM REVIEWED*: Not Applicable *COPY OF PRESCRIPTION DRUG MONITORING REPORT IN PATIENT LYLE: Not Applicable Prescriptions/Med Rec: cephALEXin [Keflex] 500 mg PO BID #13 cap Enoxaparin [Lovenox] 120 mg SUBCUT DAILY #4 syringe Warfarin [Coumadin] 5 mg PO PCLUNCH #30 tab Home Medications: Home Meds Aspirin 81 mg PO DAILY 06/03/13 [History] Finasteride 5 mg PO DAILY 06/03/13 [History] Metoprolol Tartrate 25 tab PO BID 06/03/13 [History] Carbidopa/Levodopa [Sinemet 25-100 mg Tablet] 1 tab PO DAILY 12/23/18 [History] Furosemide [Lasix] 20 mg PO DAILY 12/23/18 [History] Naphazoline HCl/Pheniramine [Visine-A Eye Allergy Drops] 2 drop OP BID PRN 12/23 [History] Triamcinolone Acetonide [Kenalog 0.1% Crm] 1 applic BID PRN 12/23/18 [History] amLODIPine [Norvasc] 5 mg PO DAILY 12/23/18 [History] Enoxaparin [Lovenox] 120 mg SUBCUT DAILY #4 syringe 12/25/18 [Rx] Warfarin [Coumadin] 5 mg PO PCLUNCH #30 tab 12/25/18 [Rx] cephALEXin [Keflex] 500 mg PO BID #13 cap 12/25/18 [Rx] Oxygen Therapy Mode: Room Air Patient Handouts: Bleeding Precautions When on Anticoagulant Therapy, Pediatric , Enoxaparin injection, Deep Vein Thrombosis Referrals: David Erickson MD [Primary Care Provider] - 12/29/18 1:40 pm (Please arrive 15 minutes early to register for your appointment.) - Discharge Summary/Plan Comment DC Time >30 min.: Yes (35 - coordinating home care and wound care ) - Patient Data Vitals - Most Recent: Last Vital Signs Temp 35.9 C 12/25/18 08:00 Pulse 67 12/25/18 09:17 Resp 16 12/25/18 08:00 BP 132/63 12/25/18 09:19 Pulse Ox 95 12/25/18 08:00 Weight - Most Recent: 79.832 kg I&O - Last 24 hours: Intake & Output 12/24/18 12/25/18 12/25/18 22:59 06:59 14:59 Intake Total 780 200 Balance 780 200 Lab Results - Last 24 hrs: Laboratory Results - last 24 hr 12/25/18 12/25/18 Range/Units 05:00 05:00 PT 12.8 H (9.5-12.0) sec INR 1.20 (0.80-1.20) Sodium 139 L (140-148) mmol/L Potassium 3.7 (3.6-5.2) mmol/L Chloride 103 (100-108) mmol/L Carbon Dioxide 26 (21-32) mmol/L Anion Gap 13.7 (5.0-14.0) mmol/L BUN 18 (7-18) mg/dL Creatinine 1.3 (0.8-1.3) mg/dL Est Cr Clr Drug Dosing 36.02 mL/min Estimated GFR (MDRD) 52 L (>60) Glucose 81 (74-106) mg/dL Calcium 8.6 (8.5-10.1) mg/dL Med Orders - Current: Current Medications Acetaminophen (Tylenol) 650 mg PO Q4H PRN PRN Reason: Pain (Mild 1-3)/fever Last Admin: 12/23/18 21:38 Dose: 325 mg Amlodipine Besylate (Norvasc) 5 mg PO DAILY [facility] Last Admin: 12/25/18 09:19 Dose: 5 mg Aspirin (Halfprin) 81 mg PO DAILY [facility] Last Admin: 12/25/18 09:14 Dose: 81 mg Bisacodyl (Dulcolax) 5 mg PO DAILY PRN PRN Reason: Constipation Carbidopa/Levodopa (Sinemet 25-100 Mg) 1 tab PO DAILY [facility] Last Admin: 12/25/18 09:21 Dose: 1 tab Cephalexin (Keflex) 500 mg PO BID [facility] Last Admin: 12/25/18 09:15 Dose: 500 mg Docusate Sodium (Colace) 100 mg PO BID PRN PRN Reason: Constipation Enoxaparin Sodium (Lovenox) 120 mg SUBCUT DAILY [facility] Last Admin: 12/25/18 10:07 Dose: 120 mg Finasteride (Proscar) 5 mg PO DAILY [facility] Last Admin: 12/25/18 09:20 Dose: 5 mg Furosemide (Lasix) 20 mg PO DAILY [facility] Last Admin: 12/25/18 09:15 Dose: 20 mg Ketotifen Fumarate (Ketotifen 0.025% Ophth Soln) 0 ml EYEBOTH BID PRN PRN Reason: ITCHY EYES Metoprolol Tartrate (Lopressor) 25 mg PO BID [facility] Last Admin: 12/25/18 09:17 Dose: 25 mg Warfarin Sodium (Coumadin) 7.5 mg PO DAILY@1300 [facility] Last Admin: 12/24/18 12:48 Dose: 7.5 mg Discontinued Medications Amlodipine Besylate (Norvasc) 5 mg PO DAILY [facility] Last Admin: 12/24/18 13:40 Dose: Not Given Aspirin (Halfprin) 81 mg PO DAILY [facility] Last Admin: 12/24/18 13:40 Dose: Not Given Carbidopa/Levodopa (Sinemet 25-100 Mg) 1 tab PO DAILY [facility] Last Admin: 12/24/18 13:41 Dose: Not Given Cephalexin (Keflex) 500 mg PO Q8H [facility] Last Admin: 12/24/18 06:37 Dose: 500 mg Enoxaparin Sodium (Lovenox) 80 mg SUBCUT Q12H [facility] Stop: 12/24/18 23:59 Last Admin: 12/24/18 21:17 Dose: 80 mg Finasteride (Proscar) 5 mg PO DAILY [facility] Last Admin: 12/24/18 13:41 Dose: Not Given Influenza Virus Vaccine (Fluzone High-Dose 2019-20 Syringe) 180 mcg IM .ONCE ONE Stop: 12/25/18 10:01 Last Admin: 12/25/18 10:04 Dose: 180 mcg Metoprolol Tartrate (Lopressor) 25 mg PO BID [facility] Last Admin: 12/24/18 13:40 Dose: Not Given Potassium Chloride (Klor-Con M20) 40 meq PO ONETIME ONE Stop: 12/24/18 11:01 Last Admin: 12/24/18 13:39 Dose: 40 meq Warfarin Sodium (Coumadin) 5 mg PO DAILY@1300 [facility] - Exam Quality Assessment: Denies: Supplemental Oxygen General: Reports: Alert, Oriented, Cooperative, No Acute Distress Lungs: Reports: Normal Respiratory Effort GI/Abdominal Exam: Soft, No Distention Extremities: Pedal Edema Psy/Mental Status: Reports: Alert, Normal Affect
[2018-12-25] MEDS: Warfarin 2.5 MG Tab PO SCH (12:28)
== END 2018-12-25 15:40 | disposition home health service (06) ==
LOC: JP.MS 18:56
PROVIDERS: ADMIT Internal Medicine; ATTEND Internal Medicine
DX: I82.402 Acute embolism and thrombosis of unspecified deep veins of left lower extremity (principal); I87.332 Chronic venous hypertension (idiopathic) with ulcer and inflammation of left lower extremity; I12.9 Hypertensive chronic kidney disease with stage 1 through stage 4 chronic kidney disease, or unspecified chronic kidney disease; N18.3 Chronic kidney disease, stage 3 (moderate); Z79.82 Long term (current) use of aspirin; Z79.899 Other long term (current) drug therapy; Z88.8 Allergy status to other drugs, medicaments and biological substances; Z88.0 Allergy status to penicillin; Z87.891 Personal history of nicotine dependence
CPT/HCPCS: 36415; 80048; 80053; 85025; 85610; 90662; 96372; A9270; G0008; G0378; G0379; J1650

== ENCOUNTER 2019-01-21 14:17 | Emergency (ER) | payer MEDICARE ==
--- NOTE | 2019-01-21 15:10 | EDM.PDOC ---
ED HPI GENERAL MEDICAL PROBLEM - General Chief Complaint: General Stated Complaint: MEDICAL [facility] Time Seen by Provider: 01/21/19 14:45 Source of Information: Reports: Patient, EMS, Family History Limitations: Reports: No Limitations - History of Present Illness INITIAL COMMENTS - FREE TEXT/NARRATIVE: 88-year-old male who is having frequent falls, becoming more confused, and yesterday fell and hit his head and is having some posterior headache. He usually gets up at 7:00 in the morning and today he slept until almost noon. No nausea or vomiting, denies any visual complaints. His left leg is hurting so much that he can't walk. He also noticed he has swelling of the lateral left leg. He has some pain in his upper neck and intermittent pain with breathing in his chest. No shortness of breath, no, pain or pelvic pain. Onset: Unknown/Unsure Associated Symptoms: Reports: Confusion, Malaise, Weakness, Other (Dementia is worsening). Denies: Nausea/Vomiting, Shortness of Breath Posterior Head Pain Score (Numeric/FACES): 5 - Related Data Allergies Allergy/AdvReac Type Severity Reaction Status Date / Time atorvastatin calcium Allergy Rash Verified 09/24/18 13:37 [From Lipitor] Penicillins Allergy Hives Verified 09/24/18 13:37 Home Meds: Home Meds Aspirin 81 mg PO DAILY 06/03/13 [History] Finasteride 5 mg PO DAILY 06/03/13 [History] Metoprolol Tartrate 25 tab PO BID 06/03/13 [History] Carbidopa/Levodopa [Sinemet 25-100 mg Tablet] 1 tab PO DAILY 12/23/18 [History] Furosemide [Lasix] 40 mg PO DAILY 12/23/18 [History] Naphazoline HCl/Pheniramine [Visine-A Eye Allergy Drops] 2 drop OP BID PRN 12/23 [History] Triamcinolone Acetonide [Kenalog 0.1% Crm] 1 applic BID PRN 12/23/18 [History] Warfarin [Coumadin] 5 mg PO PCLUNCH #30 tab 12/25/18 [Rx] Past Medical History HEENT History: Reports: Hard of Hearing, Impaired Vision, Otitis Media, Other ( See Below) Other HEENT History: Excessive cerumen Cardiovascular History: Reports: Hypertension Respiratory History: Reports: None Gastrointestinal History: Reports: Other (See Below) Other Gastrointestinal History: Bladder stones Genitourinary History: Reports: Renal Disease, Urinary Incontinence, Other (See Below) Other Genitourinary History: Kidney problems Musculoskeletal History: Reports: Fracture, Other (See Below) Other Musculoskeletal History: fractured rib secondary to fall Chronic l hip and leg pain Neurological History: Reports: CVA Psychiatric History: Reports: None Endocrine/Metabolic History: Reports: None Hematologic History: Reports: None Immunologic History: Reports: None Oncologic (Cancer) History: Reports: None Dermatologic History: Reports: Other (See Below) Other Dermatologic History: dry skin - Infectious Disease History Infectious Disease History: Reports: Chicken Pox, Hepatitis A, Other (See Below) Other Infectious Disease History: "infectious hepatitis" - Past Surgical History Head Surgeries/Procedures: Reports: None HEENT Surgical History: Reports: Cataract Surgery, Detached Retina Cardiovascular Surgical History: Reports: None GI Surgical History: Reports: Other (See Below) Other GI Surgeries/Procedures: surgery to remove bladder stones Other Male Surgeries/Procedures: partial prostatectomy? per daughter Musculoskeletal Surgical History: Reports: None Social & Family History - Family History Endocrine/Metabolic: Reports: Diabetes, type II, Other (See Below) Other Endocrine/Metabolic Family History: parathyroidism Hematologic: Reports: Anemia Other Hematologic Family History: mother - Tobacco Use Smoking Status *Q: Never Smoker - Caffeine Use Caffeine Use: Reports: Coffee - Alcohol Use Number of Drinks Per Day: 7 - Recreational Drug Use Recreational Drug Use: No ED ROS GENERAL - Review of Systems Review Of Systems: See Below Constitutional: Reports: Malaise. Denies: Fever, Chills HEENT: Denies: Vision Change Respiratory: Reports: Pleuritic Chest Pain. Denies: Shortness of Breath Cardiovascular: Reports: Chest Pain, Other (Significant tense bilateral symmetric lower extremity edema, pitting). Denies: Palpitations GI/Abdominal: Denies: Abdominal Pain, Nausea, Vomiting : Reports: No Symptoms Musculoskeletal: Reports: Other (Knee pain bilaterally, increased pain in the lateral left thigh.) Skin: Reports: Erythema (Erythema of the lower extremities especially on the left side.) Neurological: Reports: Confusion Psychiatric: Denies: Agitation, Anxiety, Depression ED EXAM, GENERAL - Physical Exam Exam: See Below Exam Limited By: No Limitations General Appearance: Alert, No Apparent Distress, Other (Seems to be answering questions appropriately at this time) Eye Exam: Bilateral Eye: EOMI, Normal Inspection Head: Atraumatic (Reacts with tenderness to palpation of the occipital area but no visual evidence of injury such as contusion, abrasion or hematoma) Neck: Supple, Other (Tender to palpation over the upper cervical body C1-C2 area at the nape of the neck posteriorly) Respiratory/Chest: No Respiratory Distress, Lungs Clear Cardiovascular: Regular Rate, Rhythm GI/Abdominal: Soft, Non-Tender Extremities: Other (Patient has a fairly significant hematoma on the lateral left thigh, tender to palpation. No effusions of either knee or bony tenderness. ) Course - Vital Signs Last Recorded V/S: Last Vital Signs Temp 98.6 F 01/21/19 14:34 Pulse 67 01/21/19 15:37 Resp 18 01/21/19 14:34 BP 174/66 H 01/21/19 15:37 Pulse Ox 97 01/21/19 15:37 - Re-Assessments/Exams Free Text/Narrative Re-Assessment/Exam: 01/21/19 15:09 Erythema of the lower extremities due to the edema, appears chronic 01/21/19 15:09 CT the head will be obtained as well as a two-view chest x-ray. 01/21/19 16:33 CT the head is stable, chest x-ray is normal. Consultation with Gabi in discharge services resulted in likely admission to [facility] for rehabilitation tomorrow. I will discuss this with Dr. Erickson in the morning. Patient is going to go home and stay with his daughter madyson. Departure - Departure Time of Disposition: 16:58 Disposition: Home, Self-Care 01 Clinical Impression: Acute chest wall pain, Frequent falls Hematoma of left lower extremity Qualifiers: Encounter type: initial encounter Qualified Code(s): S80.12XA - Contusion of left lower leg, initial encounter Scalp contusion Qualifiers: Encounter type: initial encounter Qualified Code(s): S00.03XA - Contusion of scalp, initial encounter - Discharge Information Instructions: Hematoma, [id number] Referrals: David Erickson MD [Primary Care Provider] - Forms: ED Department Discharge Care Plan Goals: Wrap leg to control swelling, continue your regular medications and recheck tomorrow as discussed.
--- NOTE | 2019-01-21 15:25 | CRLCT ---
INDICATION: Fall, confusion. TECHNIQUE: Head CT without contrast. COMPARISON: None FINDINGS: CSF spaces: Within normal limits for age. 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 No sign of acute CVA, hemorrhage or mass effect. Glasgow-white matter distinction is otherwise intact. Skull base and calvarium: The visualized paranasal sinuses and mastoid air cells demonstrate no acute or significant findings. The visualized orbits are grossly unremarkable. No skull fractures. IMPRESSION: No sign of acute injury or disease. Dictated by Lorne Slater MD @ 01/21/2019 3:23:21 PM Please note that all CT scans at this facility use dose modulation, iterative reconstruction, and/or weight-based dosing when appropriate to reduce radiation dose to as low as reasonably achievable. Dictated by: Lorne Slater MD @ 01/21/2019 15:23:26 (Electronically Signed)
--- NOTE | 2019-01-21 15:27 | CRLCR ---
Indication: Dyspnea Technique: Chest 2 views Comparison: None Findings: Cardiovascular and mediastinum: Heart size and vasculature are normal in caliber and appearance. Lungs and pleural spaces: Lungs are clear. No sign of infiltrate or mass. No sign of pleural effusion. No pneumothorax. Bones and soft tissues: No significant findings. Impression: Unremarkable chest. Dictated by Lorne Slater MD @ 01/21/2019 3:26:10 PM Dictated by: Lorne Slater MD @ 01/21/2019 15:26:13 (Electronically Signed)
== END 2019-01-21 16:58 | disposition home or self-care (01) ==
LOC: JP.ED 14:17
DX: S80.12XA Contusion of left lower leg, initial encounter (principal); S00.03XA Contusion of scalp, initial encounter; I10 Essential (primary) hypertension; R07.89 Other chest pain; R29.6 Repeated falls; Z88.8 Allergy status to other drugs, medicaments and biological substances; Z88.0 Allergy status to penicillin; Z79.82 Long term (current) use of aspirin; Z86.73 Personal history of transient ischemic attack (TIA), and cerebral infarction without residual deficits; Z79.899 Other long term (current) drug therapy; Z79.02 Long term (current) use of antithrombotics/antiplatelets; W01.10XA Fall on same level from slipping, tripping and stumbling with subsequent striking against unspecified object, initial encounter
CPT/HCPCS: 70450; 71046; 99283; 99284-25